=== PATIENT | female | born 1955 | race Asian ===

== ENCOUNTER 2017-08-09 16:44 | Emergency (ER) | payer BC ==
[~2017-08-09] VITALS: Ht 160 cm; Wt 72.7 kg
[2017-08-09 17:30] LABS: INTER. NORMALIZED RATIO 1.4
[2017-08-09 17:32] LABS: PTT 35.2 SEC (25-37)
[2017-08-09] MEDS ORDERED: LOVENOX60 MG/0.6 SC (18:43)
[2017-08-09] MEDS ORDERED: LOVENOX80 MG/0.8 SC (18:52)
[2017-08-09 19:31] VITALS: BP 126/70
== END 2017-08-09 19:31 | disposition home or self-care (01) ==
LOC: EME 16:44
PROVIDERS: Emergency Medicine
DX: I82.441 Acute embolism and thrombosis of right tibial vein (principal); Z86.718 Personal history of other venous thrombosis and embolism; Z79.01 Long term (current) use of anticoagulants; E11.9 Type 2 diabetes mellitus without complications
CPT/HCPCS: 85610; 85730; 93971; 99281; 99284; J1650